=== PATIENT | female | born 1970 | race Caucasian/White ===

== ENCOUNTER 2020-11-25 15:46 | Inpatient (IN) | payer OTHER ==
[~2020-11-25] VITALS: Ht 149.9 cm; Wt 60.3 kg
[~2020-11-25 15:46] MED LIST: ATENOLOL50 MG PO; CRESTOR40 MG PO; ENTOCORT EC3 MG PO; FLOVENT DISKUS50 MCG INH; GLUCOPHAGE1000 MG PO; IBU800 MG PO; KEFLEX CAP 500500 MG PO; KEFLEX500 MG PO; LACTULOSE10 GM/152 PO; LODINE CAP 300300 MG PO; LOW DOSE ASPIRI81 MG PO; PRILOSEC OTC20 MG PO; TRICOR145 MG PO; VENTOLIN HFA 66.7 GM INH; VITAMIN D31250 MCG PO; ZETIA10 MG PO; ZOFRAN ODT 4 MG4 MG PO
[2020-11-25 18:00] LABS: HEMOGLOBIN 15.8 gm/dl (12.3-15.3); RED BLOOD COUNT 4.97 M/UL (4.00-5.10); WHITE BLOOD COUNT 10.2 K/UL (4.5-11.0)
[2020-11-25 18:17] LABS: BUN/CREATININE RATIO 25 (0-10)
[2020-11-26 04:40] LABS: HEMOGLOBIN 14.1 gm/dl (12.3-15.3); RED BLOOD COUNT 4.44 M/UL (4.00-5.10)
[2020-11-26 05:01] LABS: BUN/CREATININE RATIO 40 (0-10)
[2020-11-26] MEDS ORDERED: LACTULOSE10 GM/152 PO (07:24)
[2020-11-26] MEDS ORDERED: ALLEGRA ALLERG180 MG PO (07:25)
[2020-11-26] MEDS ORDERED: HUMALOG MI100 UNIT/3 SQ (07:30)
[2020-11-27 03:30] LABS: HEMOGLOBIN 13.2 gm/dl (12.3-15.3); RED BLOOD COUNT 4.19 M/UL (4.00-5.10)
[2020-11-27 03:38] LABS: BUN/CREATININE RATIO 36 (0-10)
[2020-11-28 04:48] LABS: HEMOGLOBIN 13.9 gm/dl (12.3-15.3); RED BLOOD COUNT 4.39 M/UL (4.00-5.10); WHITE BLOOD COUNT 6.9 K/UL (4.5-11.0)
[2020-11-28 05:25] LABS: BUN/CREATININE RATIO 22 (0-10)
== END 2020-11-29 14:30 | disposition home or self-care (01) | DRG 389 ==
LOC: ER1 15:46 → M/S 23:10 → CDU 23:10 → M/S 11-26 07:44
PROVIDERS: Physician Assistant; Physician Assistant Medical; ADMIT Internal Medicine
DX: K56.50 Intestinal adhesions [bands], unspecified as to partial versus complete obstruction (principal); E87.2 Acidosis; K76.6 Portal hypertension; E11.9 Type 2 diabetes mellitus without complications; Z20.822 Contact with and (suspected) exposure to COVID-19; I10 Essential (primary) hypertension; K74.69 Other cirrhosis of liver; K76.0 Fatty (change of) liver, not elsewhere classified; F17.210 Nicotine dependence, cigarettes, uncomplicated; Z79.82 Long term (current) use of aspirin; Z90.49 Acquired absence of other specified parts of digestive tract; Z90.710 Acquired absence of both cervix and uterus; Z79.4 Long term (current) use of insulin; Z83.79 Family history of other diseases of the digestive system
CPT/HCPCS: 36415; 71045; 80048; 80053; 81001; 82962; 83605; 83690; 84484; 85025; 85610; 93005; 94760; 96374; 96375; 96376; 99285; J0360; J1170; J1650; J2270; J2405; J3480; Q9967; U0002

== ENCOUNTER 2021-01-21 19:57 | Emergency (ER) | payer OTHER ==
[~2021-01-21 19:57] MED LIST changes: +ALLEGRA ALLERG180 MG PO; +HUMALOG MI100 UNIT/3 SQ
== END 2021-01-21 21:50 | disposition home or self-care (01) ==
LOC: ER1 19:57
DX: M79.661 Pain in right lower leg (principal); M79.671 Pain in right foot; E11.40 Type 2 diabetes mellitus with diabetic neuropathy, unspecified; J44.9 Chronic obstructive pulmonary disease, unspecified; F17.200 Nicotine dependence, unspecified, uncomplicated; Z90.710 Acquired absence of both cervix and uterus; Z88.8 Allergy status to other drugs, medicaments and biological substances
CPT/HCPCS: 73590; 73630; 99283

== ENCOUNTER → 2022-01-11 | Outpatient (CLI) | payer OTHER | LOC: RAD 12:56 | DX: R06.02 Shortness of breath (principal) | CPT/HCPCS: 71046 ==

== ENCOUNTER → 2022-01-21 | Outpatient (CLI) | payer OTHER ==
[2022-01-21 12:14] LABS: RED BLOOD COUNT 4.4 M/UL (4.00-5.10); WHITE BLOOD COUNT 6.3 K/UL (4.5-11.0)
[2022-01-21 19:12] LABS: BUN/CREATININE RATIO 11 (0-10)
== END ==
LOC: LAB 11:39
PROVIDERS: Physician Assistant
DX: E11.9 Type 2 diabetes mellitus without complications (principal); R53.83 Other fatigue; E55.9 Vitamin D deficiency, unspecified; E78.5 Hyperlipidemia, unspecified
CPT/HCPCS: 36415; 80053; 80061; 82607; 83036; 84439; 84443; 85025